=== PATIENT | male | born 1990 | race African-American/Black ===

== ENCOUNTER 2017-06-16 14:13 | Emergency (ER) | payer OTHER ==
[~2017-06-16] VITALS: Ht 182.9 cm; Wt 79.5 kg
[2017-06-16 14:13] VITALS: BP 137/88
[2017-06-16] MEDS ORDERED: L.E.T SOLUTION TP ONE ×2 (14:30→14:31)
[2017-06-16] MEDS ORDERED: DIPH,PERTUSS(ACELL),TET VAC/PF 0.5 ML IM-VACC ONE ×2 (14:30→14:49)
== END 2017-06-16 16:14 | disposition home or self-care (01) ==
LOC: ED 14:28
DX: S01.01XA Laceration without foreign body of scalp, initial encounter (principal); S60.221A Contusion of right hand, initial encounter; Y04.0XXA Assault by unarmed brawl or fight, initial encounter
CPT/HCPCS: 12002; 90471; 90715